=== PATIENT | female | born 1990 | race Caucasian/White ===

== ENCOUNTER 2021-10-29 13:01 | Emergency (ER) | payer MEDICAID ==
[~2021-10-29] VITALS: Ht 149.9 cm; Wt 51.0 kg
[2021-10-29 13:36] VITALS: BP 119/58
--- NOTE | 2021-10-29 13:40 | NUR ---
BIB SELF C/O DIZZINESS, 5/10 HEADACHE, NAUSEA X 1 WEEK. LMP 10/22/21. PMH: DEPRESSION
[2021-10-29 15:07] LABS: BASOPHILS % (AUTO) 0.5 % (0.0-2.0); EOSINOPHILS % (AUTO) 0.5 % (0.0-4.0); HEMATOCRIT 37.8 % (36-48); HEMOGLOBIN 12.8 g/dL (12.0-16.0); LYMPHOCYTES % (AUTO) 17.2 % (20.5-51.1); MEAN CORPUSCULAR HEMOGLOBIN 29 pg (27-31); MEAN CORPUSCULAR HGB CONC 34 g/dL (33-37); MEAN CORPUSCULAR VOLUME 85.5 fL (80-94); MONOCYTES # (AUTO) 0.4 K/uL (0.8-1.0); NEUTROPHILS # (AUTO) 4.4 K/uL (1.8-7.7); NEUTROPHILS % (AUTO) 74.8 % (42.2-75.2); PLATELET COUNT (AUTO) 353 K/uL (140-450); RED BLOOD CELL COUNT(AUTO) 4.42 MIL/uL (4.20-5.40); RED CELL DISTRIBUTION WIDTH 13.2 % (11.6-13.7); WHITE BLOOD COUNT (AUTO) 5.9 K/uL (4.8-10.8)
[2021-10-29 15:18] LABS: ANION GAP 13.3 (8-16); CARBON DIOXIDE 26.4 mmol/L (21-32); CREATININE 0.5 mg/dL (0.6-1.3); POTASSIUM 3.7 mmol/L (3.5-5.1)
--- NOTE | 2021-10-29 15:19 | NUR ---
30 Y/O F C/O DIZZINESS, HEADACHE, N/V/D FOR ONE WEEK ON AND OFF. CURRENTLY HAS HEADACHE PAIN 04/17. PMH: DEPRESSION, ANXIETY NKA
[2021-10-29] MEDS ORDERED: ONDANSETRON 4 MG ODT PO ONE (15:40)
[2021-10-29] MEDS ORDERED: KETOROLAC 30 MG/ML VIAL IM ONE (15:40)
[2021-10-29] MEDS ORDERED: ONDA-188 SL (15:46)
--- NOTE | 2021-10-29 16:03 | NUR ---
Patient discharged with v/s stable. Written and verbal after care instructions given and explained. Patient alert, oriented and verbalized understanding of instructions. Ambulatory with steady gait. All questions addressed prior to discharge. ID band removed. Patient advised to follow up with PMD. Rx of ONDANSETRON given. Opportunity to ask questions provided and answered.
--- NOTE | 2021-10-29 16:04 | NUR ---
The patient's care was reviewed and supervised by Mayra Soto RN.
== END 2021-10-29 16:03 | disposition home or self-care (01) ==
LOC: MED 13:01
DX: R11.2 Nausea with vomiting, unspecified (principal); R42 Dizziness and giddiness; R51.9 Headache, unspecified; I10 Essential (primary) hypertension; Z91.013 Allergy to seafood
CPT/HCPCS: 36415; 80048; 81025; 84484; 85025; 93005; 96372; 99284; J1885; Q0162

== ENCOUNTER 2022-03-01 12:19 | Emergency (ER) | payer MEDICAID ==
[~2022-03-01] VITALS: Ht 149.9 cm; Wt 52.2 kg
[~2022-03-01 12:19] MED LIST: ONDA-188 SL
[2022-03-01 12:31] VITALS: BP 114/68
[2022-03-01] MEDS ORDERED: DICYCLOMINE HCL LIQUID 20 MG, ALUMINUM HYD/MAG/SIMETHICONE 30 ML, LIDOCAINE VISCOUS 2% ... PO ONE ×3 (12:50)
[2022-03-01] MEDS ORDERED: ONDANSETRON 4 MG TAB PO ONE (12:50)
[2022-03-01] MEDS ORDERED: ALUMINUM HYD/MAG/SIMETHICONE 30 ML UDC ONE ×2 (12:59→13:00)
[2022-03-01] MEDS ORDERED: DICYCLOMINE HCL LIQUID 10 MG/5 ML UDC ONE (12:59)
[2022-03-01] MEDS ORDERED: ACETAMINOPHEN 325 MG TAB PO ONE (13:00)
--- NOTE | 2022-03-01 13:35 | NUR ---
31/F BIB SELF WITH C/O EPIGASTRIC PAIN RADIATING TO HER LLQ SINCE THIS MORNING. PATIENT STATES PAIN CAME ON SUDDENLY ALONG WITH NAUSEA AND VOMITING, DENIES DIARRHEA OR CONSTIPATIION, DENIES TAKING MEDS FOR HER SYMPTOMS. PATIENT DENIES FEVER, COUGH, OR RECENT SICK CONTACTS.
[2022-03-01] MEDS ORDERED: cefTRIAXone 1,000 MG in LIDOCAINE MPF 1% 2.1 ML IM SCH (14:20)
[2022-03-01] MEDS ORDERED: CEPH-588 PO (14:24)
[2022-03-01] MEDS ORDERED: FAMO-90 PO (14:24)
[2022-03-01] MEDS ORDERED: ONDA-188 PO (14:24)
[2022-03-01] MEDS ORDERED: cefTRIAXone 1,000 MG in LIDOCAINE MPF 1% 2.1 ML IM ONE (14:35)
[2022-03-01] MEDS ORDERED: cefTRIAXone 1,000 MG VIAL ONE (14:41)
[2022-03-01 15:04] VITALS: BP 110/57
--- NOTE | 2022-03-01 15:04 | NUR ---
Patient discharged with v/s stable. Written and verbal after care instructions ABOUT URINARY TRACT INFECTION AND ABDOMINAL PAIN given and explained. Patient alert, oriented and verbalized understanding of instructions. Ambulatory with steady gait. All questions addressed prior to discharge. ID band removed. Patient advised to follow up with PMD. Rx of KEFLEX, PEPCID given. Patient educated on indication of medication including possible reaction and side effects. Opportunity to ask questions provided and answered.
[2022-03-02] MEDS ORDERED: OMEP40EC24 PO (18:17)
== END 2022-03-01 15:04 | disposition home or self-care (01) ==
LOC: MED 12:19
DX: N39.0 Urinary tract infection, site not specified (principal); R11.10 Vomiting, unspecified; Z79.899 Other long term (current) drug therapy
CPT/HCPCS: 81002; 81025; 87086; 96372; 99284; J0696; Q0162

== ENCOUNTER 2022-03-02 16:08 | Emergency (ER) | payer MEDICAID ==
[~2022-03-02] VITALS: Ht 149.9 cm; Wt 52.6 kg
[~2022-03-02 16:08] MED LIST changes: +CEPH-588 PO; +FAMO-90 PO; +ONDA-188 PO
[2022-03-02 16:20] VITALS: BP 114/68
[2022-03-02 16:47] LABS: BASOPHILS % (AUTO) 0.6 % (0.0-2.0); EOSINOPHILS % (AUTO) 0.3 % (0.0-4.0); HEMOGLOBIN 12.2 g/dL (12.0-16.0); LYMPHOCYTES # (AUTO) 1.6 K/uL (2.5-16.5); LYMPHOCYTES % (AUTO) 19.9 % (20.5-51.1); MEAN CORPUSCULAR HEMOGLOBIN 29 pg (27-31); MEAN CORPUSCULAR HGB CONC 34 g/dL (33-37); MEAN CORPUSCULAR VOLUME 84.6 fL (80-94); MONOCYTES # (AUTO) 0.6 K/uL (0.8-1.0); NEUTROPHILS # (AUTO) 5.9 K/uL (1.8-7.7); NEUTROPHILS % (AUTO) 72.2 % (42.2-75.2); PLATELET COUNT (AUTO) 392 K/uL (140-450); RED BLOOD CELL COUNT(AUTO) 4.25 MIL/uL (4.20-5.40); RED CELL DISTRIBUTION WIDTH 13.5 % (11.6-13.7); WHITE BLOOD COUNT (AUTO) 8.2 K/uL (4.8-10.8)
--- NOTE | 2022-03-02 16:54 | NUR ---
31/F BIB SELF C/O ABDOMINAL PAIN SINCE YESTERDAY. WAS SEEN HERE YESTERDAY FOR SAME SYMTPOMS AND DX WITH UTI AND GIVEN ABX. STATES N/V RESOLVED BUT PAIN IS STILL PRESENT, DENIES TAKING PAIN MEDS. PAIN COMES AND GOES, 8/10 WHEN PAIN COMES, 3/10 WHEN PAIN GOES. DENIES N/V/D; SKIN IS PINK/WARM/DRY; AAOX4 WITH EVEN AND STEADY GAIT; LUNGS CLEAR BL; HR EVEN AND REGULAR; PT DENIES ANY FEVER, CP, SOB, OR COUGH AT THIS TIME; PATIENT STATES ABDOMINAL PAIN OF 3/10 AND HEADACHE PAIN OF 7/10 AT THIS TIME; VSS; PATIENT POSITIONED FOR COMFORT; HOB ELEVATED; BEDRAILS UP X2; BED DOWN. ER MD MADE AWARE OF PT STATUS. MEDHX: DENIES ALLERGIES: ELIJAH
[2022-03-02 17:05] LABS: ALBUMIN 3.9 g/dL (3.4-5.0); ANION GAP 12.4 (8-16); CARBON DIOXIDE 25.3 mmol/L (21-32); CREATININE 0.6 mg/dL (0.6-1.3); POTASSIUM 3.7 mmol/L (3.5-5.1); TOTAL BILIRUBIN 0.7 mg/dL (0.0-1.0)
[2022-03-02] MEDS ORDERED: OMEP40EC24 PO (18:17)
[2022-03-02 18:23] VITALS: BP 114/68
--- NOTE | 2022-03-02 18:23 | NUR ---
Patient discharged with v/s stable. Written and verbal after care instructions given and explained. Patient alert, oriented and verbalized understanding of instructions. Ambulatory with steady gait. All questions addressed prior to discharge. ID band removed. Patient advised to follow up with PMD. Rx of PRILOSEC given. Patient educated on indication of medication including possible reaction and side effects. Opportunity to ask questions provided and answered.
== END 2022-03-02 18:23 | disposition home or self-care (01) ==
LOC: MED 16:08
DX: N39.0 Urinary tract infection, site not specified (principal); Z98.890 Other specified postprocedural states; Z79.899 Other long term (current) drug therapy; Z79.2 Long term (current) use of antibiotics; Z91.013 Allergy to seafood
CPT/HCPCS: 36415; 80053; 83690; 85025; 99283

== ENCOUNTER 2022-03-23 12:37 | Emergency (ER) | payer MEDICAID ==
[~2022-03-23] VITALS: Ht 175.3 cm; Wt 54.0 kg
[~2022-03-23 12:37] MED LIST changes: +OMEP40EC24 PO
[2022-03-23 12:50] VITALS: BP 115/75
--- NOTE | 2022-03-23 12:53 | NUR ---
PT TO LOBBY.
--- NOTE | 2022-03-23 13:39 | NUR ---
PT AMBULATED TO ER BED 7 WITH A STEADY GAIT.
[2022-03-23] MEDS ORDERED: IBUP-2213 PO (13:47)
[2022-03-23] MEDS ORDERED: [UNRECOGNIZED DRUG - CODE] PO (13:47)
--- NOTE | 2022-03-23 14:14 | NUR ---
Patient discharged with v/s stable. Written and verbal after care instructions FOR UPPER RESPIRATORY INFECTION given and explained. Patient alert, oriented and verbalized understanding of instructions. Ambulatory with steady gait. All questions addressed prior to discharge. ID band removed. Patient advised to follow up with PMD. Rx of GUAIFENESIN AND IBUPROFEN given. Opportunity to ask questions provided and answered.
--- NOTE | 2022-03-23 14:45 | NUR ---
31 Y/O FEMALE C/O RIGHT EAR PAIN 5/10 RADIATING TO RIGHT SIDE OF THROAT X1DAYS. DENIES FEVER/CHILLS. DENIES N/V. DENIES PMH ALLERGIES: SHRIMP
== END 2022-03-23 14:14 | disposition home or self-care (01) ==
LOC: MED 12:37
DX: J06.9 Acute upper respiratory infection, unspecified (principal); Z20.822 Contact with and (suspected) exposure to COVID-19
CPT/HCPCS: 99283

== ENCOUNTER 2022-06-02 21:44 | Emergency (ER) | payer MEDICAID ==
[~2022-06-02] VITALS: Ht 149.9 cm; Wt 57.2 kg
[~2022-06-02 21:44] MED LIST changes: +IBUP-2213 PO; +[UNRECOGNIZED DRUG - CODE] PO
[2022-06-02 21:52] VITALS: BP 117/71
--- NOTE | 2022-06-03 00:02 | NUR ---
Dr. Cantu examining patient.
[2022-06-03] MEDS ORDERED: [UNRECOGNIZED DRUG - CODE] TP ×3 (00:07→01:45)
[2022-06-03] MEDS ORDERED: CEPH-588 PO ×3 (00:07→01:45)
[2022-06-03] MEDS ORDERED: PYR100 PO ×3 (00:07→01:45)
[2022-06-03 00:34] VITALS: BP 117/71
--- NOTE | 2022-06-03 00:35 | NUR ---
Patient discharged with v/s stable. Written and verbal after care instructions given and explained. Patient alert, oriented and verbalized understanding of instructions. Ambulatory with steady gait. All questions addressed prior to discharge. ID band removed. Patient advised to follow up with PMD. Rx of KEFLEX, ANTI ITCH CREAM, PYRIDIUM given. Patient educated on indication of medication including possible reaction and side effects. Opportunity to ask questions provided and answered.
[2022-06-03 04:38] LABS: APPEARANCE,URINE CLEAR (CLEAR); BILIRUBIN,URINE NEGATIVE (NEGATIVE); BLOOD, URINE TRACE-I (NEGATIVE); COLOR,URINE YELLOW (YELLOW); LEUKOCYTE ESTERASE ,URINE TRACE (NEGATIVE); NITRITE, URINE NEGATIVE (NEGATIVE); UGLUCOSE NEGATIVE (NEGATIVE)
[2022-06-03 07:55] LABS: RBC,URINE 0-5 /HPF (0-5); WBC,URINE 0-5 /HPF (0-5)
--- NOTE | 2022-06-06 18:24 | NUR ---
LATE ENTRY. RECEIVED POSITIVE URINE CULTURE. DISCREPANCY LOG SIGNED BY DR SERRANO. TREATMENT APPROPRIATE. FORM PLACED IN BINDER
== END 2022-06-03 00:35 | disposition home or self-care (01) ==
LOC: MED 21:44
DX: N30.90 Cystitis, unspecified without hematuria (principal)
CPT/HCPCS: 81001; 81002; 87086; 99283

== ENCOUNTER 2022-08-12 22:52 | Emergency (ER) | payer MEDICAID ==
[~2022-08-12] VITALS: Ht 149.9 cm; Wt 61.2 kg
[~2022-08-12 22:52] MED LIST changes: +PYR100 PO; +[UNRECOGNIZED DRUG - CODE] TP
[2022-08-12 23:14] VITALS: BP 118/76
--- NOTE | 2022-08-12 23:19 | NUR ---
TO LOBBY FOLLOWING TRIAGE
--- NOTE | 2022-08-12 23:42 | NUR ---
PT TAKEN TO BED 6
--- NOTE | 2022-08-13 | NUR ---
PT AMBULATED TO ED 6 FROM TRIAGE, PT C/O MIGRAINE X 3 DAYS, PT STARTED WEAR HER EYE GLASSES ON WEDNESDAY AND MIGRAINE STARTED WEDNESDAY, C/O DIZZINESS AT NIGHT.
--- NOTE | 2022-08-13 00:09 | NUR ---
Dr. Evans examining patient.
[2022-08-13] MEDS ORDERED: NACL 0.9% 1,000 ML IV ONE (00:10)
[2022-08-13] MEDS ORDERED: KETOROLAC 30 MG/ML VIAL IVP ONE (00:10)
[2022-08-13] MEDS ORDERED: ONDANSETRON 4 MG/2 ML VIAL IVP ONE (00:10)
[2022-08-13] MEDS ORDERED: IBUP-2213 PO (01:02)
[2022-08-13] MEDS ORDERED: ONDA-188 PO (01:02)
--- NOTE | 2022-08-13 01:12 | NUR ---
Patient discharged with v/s stable. Written and verbal after care instructions given and explained. Patient alert, oriented and verbalized understanding of instructions. Ambulatory with steady gait. All questions addressed prior to discharge. ID band removed. Patient advised to follow up with PMD. Rx of IBUPROFEN AND ZOFRAN given. Patient educated on indication of medication including possible reaction and side effects. Opportunity to ask questions provided and answered.
[2022-08-13 01:16] VITALS: BP 122/78
== END 2022-08-13 01:12 | disposition home or self-care (01) ==
LOC: MED 22:52
DX: G43.909 Migraine, unspecified, not intractable, without status migrainosus (principal); Z79.899 Other long term (current) drug therapy
CPT/HCPCS: 81025; 96361; 96374; 96375; 99284; J1885; J2405; J7030

== ENCOUNTER 2022-09-07 08:13 | Emergency (ER) | payer MEDICAID ==
[~2022-09-07] VITALS: Ht 147.3 cm; Wt 59.9 kg
[2022-09-07 08:45] VITALS: BP 120/72
--- NOTE | 2022-09-07 09:46 | NUR ---
PT AMBULATED TO ER BED 7
[2022-09-07] MEDS ORDERED: PRED20TA5 PO (10:37)
[2022-09-07] MEDS ORDERED: IBUP-2213 PO (10:37)
[2022-09-07] MEDS ORDERED: ONDANSETRON 4 MG ODT PO ONE (10:40)
--- NOTE | 2022-09-07 10:52 | NUR ---
Patient discharged with v/s stable. Written and verbal after care instructions FOR COUGH AND SORE THROAT given and explained. Patient alert, oriented and verbalized understanding of instructions. Ambulatory with steady gait. All questions addressed prior to discharge. ID band removed. Patient advised to follow up with PMD. Rx of IBUPROFEN AND PREDNISONE given. Opportunity to ask questions provided and answered.
--- NOTE | 2022-09-07 10:53 | NUR ---
The patient's care was reviewed and supervised by Mayra Soto RN.
== END 2022-09-07 10:52 | disposition home or self-care (01) ==
LOC: MED 08:13
DX: J02.9 Acute pharyngitis, unspecified (principal); Z91.013 Allergy to seafood; Z79.899 Other long term (current) drug therapy; Z98.890 Other specified postprocedural states
CPT/HCPCS: 99283

== ENCOUNTER 2022-11-13 18:36 | Emergency (ER) | payer MEDICAID ==
[~2022-11-13] VITALS: Ht 144.8 cm; Wt 62.6 kg
[~2022-11-13 18:36] MED LIST changes: +PRED20TA5 PO
--- NOTE | 2022-11-13 18:53 | NUR ---
CALLED FOR PT IN LOBBY AND OUTSIDE, NO ANSWER.
[2022-11-13 18:56] VITALS: BP 145/70
[2022-11-13] MEDS ORDERED: AMOX1TAB8 PO (19:46)
[2022-11-13] MEDS ORDERED: FLONAS NS (19:46)
[2022-11-13 20:32] VITALS: BP 145/70
--- NOTE | 2022-11-13 20:32 | NUR ---
Patient discharged with v/s stable. Written and verbal after care instructions given and explained. Patient alert, oriented and verbalized understanding of instructions. Ambulatory with steady gait. All questions addressed prior to discharge. ID band removed. Patient advised to follow up with PMD. Rx of FLONASE AND AMOX-CLAV given. Patient educated on indication of medication including possible reaction and side effects. Opportunity to ask questions provided and answered.
== END 2022-11-13 20:32 | disposition home or self-care (01) ==
LOC: MED 18:36
DX: J01.91 Acute recurrent sinusitis, unspecified (principal)
CPT/HCPCS: 99283

== ENCOUNTER 2022-11-18 19:54 | Emergency (ER) | payer MEDICAID ==
[~2022-11-18] VITALS: Ht 152.4 cm; Wt 62.6 kg
[~2022-11-18 19:54] MED LIST changes: +AMOX1TAB8 PO; +FLONAS NS
[2022-11-18 20:12] VITALS: BP 119/70
[2022-11-18] MEDS ORDERED: TRAM-748 PO (21:13)
[2022-11-18] MEDS ORDERED: BPM/118S31 PO (21:13)
--- NOTE | 2022-11-18 21:20 | NUR ---
Patient discharged with v/s stable. Written and verbal after care instructions given and explained to parent/guardian. Parent/Guardian verbalized understanding. Ambulatorysteady gait. All questions addressed prior to discharge. Advised to follow up with PMD.
== END 2022-11-18 21:20 | disposition home or self-care (01) ==
LOC: MED 19:54
DX: J06.9 Acute upper respiratory infection, unspecified (principal); B34.9 Viral infection, unspecified; Z79.899 Other long term (current) drug therapy; Z79.891 Long term (current) use of opiate analgesic; Z79.1 Long term (current) use of non-steroidal anti-inflammatories (NSAID); Z79.2 Long term (current) use of antibiotics; Z91.013 Allergy to seafood
CPT/HCPCS: 99283

== ENCOUNTER 2023-04-10 20:57 | Emergency (ER) | payer MEDICAID ==
[~2023-04-10] VITALS: Ht 149.9 cm; Wt 61.2 kg
[~2023-04-10 20:57] MED LIST changes: +BPM/118S31 PO; +TRAM-748 PO
[2023-04-10 21:43] VITALS: BP 117/66
--- NOTE | 2023-04-10 21:49 | NUR ---
TO LOBBY FOLLOWING TRIAGE
--- NOTE | 2023-04-10 22:31 | NUR ---
PT TO BED #1
[2023-04-10] MEDS ORDERED: KETOROLAC 30 MG/ML VIAL IVP ONE (23:40)
[2023-04-10] MEDS ORDERED: diphenhydrAMINE 50 MG/ML VIAL IVP ONE (23:40)
[2023-04-10] MEDS ORDERED: NACL 0.9% 1,000 ML IV ONE (23:40)
[2023-04-10] MEDS ORDERED: METOCLOPRAMIDE 10 MG/2 ML INJ VIAL IVP ONE (23:40)
--- NOTE | 2023-04-10 23:48 | NUR ---
Pt said she is not since she is almost ending her period.
[2023-04-11 01:16] LABS: APPEARANCE,URINE CLEAR (CLEAR); BILIRUBIN,URINE NEGATIVE (NEGATIVE); BLOOD, URINE TRACE-I (NEGATIVE); COLOR,URINE YELLOW (YELLOW); LEUKOCYTE ESTERASE ,URINE NEGATIVE (NEGATIVE); NITRITE, URINE NEGATIVE (NEGATIVE); UGLUCOSE NEGATIVE (NEGATIVE)
[2023-04-11 01:25] LABS: OTHER CRYSTALS,URINE SODIUM URATES 1+ /HPF (None Seen); RBC,URINE 0-5 /HPF (0-5)
[2023-04-11] MEDS ORDERED: METO-485 PO (01:25)
--- NOTE | 2023-04-11 01:30 | NUR ---
pt said she feel better. notified.
[2023-04-11 01:50] VITALS: BP 117/66
--- NOTE | 2023-04-11 01:52 | NUR ---
Patient discharged with v/s stable. Written and verbal after care instructions given and explained. Patient alert, oriented and verbalized understanding of instructions. Ambulatory with steady gait. All questions addressed prior to discharge. ID band removed. Patient advised to follow up with PMD. Rx of reglan given. Patient educated on indication of medication including possible reaction and side effects. Opportunity to ask questions provided and answered.
== END 2023-04-11 01:52 | disposition home or self-care (01) ==
LOC: MED 20:57
DX: R51.9 Headache, unspecified (principal); F32.9 Major depressive disorder, single episode, unspecified; G43.909 Migraine, unspecified, not intractable, without status migrainosus; Z79.899 Other long term (current) drug therapy; Z98.890 Other specified postprocedural states
CPT/HCPCS: 81001; 81025; 96361; 96374; 96375; 99284; J1200; J1885; J2765; J7030

== ENCOUNTER 2023-05-20 14:53 | Emergency (ER) | payer MEDICAID ==
[~2023-05-20] VITALS: Ht 149.9 cm; Wt 63.2 kg
[~2023-05-20 14:53] MED LIST changes: +METO-485 PO
[2023-05-20] MEDS ORDERED: IBUPROFEN 800 MG TAB PO ONE (15:00)
[2023-05-20] MEDS ORDERED: ONDANSETRON 4 MG ODT PO ONE (15:00)
[2023-05-20 15:03] VITALS: BP 124/73; PULSE 78; RESP 20; TEMP 97.9; O2SAT 97
--- NOTE | 2023-05-20 15:20 | NUR ---
pt ambulated to chair b from triage, being assessed by
[2023-05-20 15:22] LABS: BASOPHILS % (AUTO) 0.6 % (0.0-2.0); EOSINOPHILS % (AUTO) 0.4 % (0.0-4.0); HEMATOCRIT 37.4 % (36-48); HEMOGLOBIN 12.4 g/dL (12.0-16.0); LYMPHOCYTES # (AUTO) 1.4 K/uL (2.5-16.5); LYMPHOCYTES % (AUTO) 15.6 % (20.5-51.1); MEAN CORPUSCULAR HEMOGLOBIN 27 pg (27-31); MEAN CORPUSCULAR HGB CONC 33 g/dL (33-37); MEAN CORPUSCULAR VOLUME 81.3 fL (80-94); MONOCYTES # (AUTO) 0.6 K/uL (0.8-1.0); MONOCYTES % (AUTO) 6.5 % (1.7-9.3); NEUTROPHILS # (AUTO) 6.8 K/uL (1.8-7.7); NEUTROPHILS % (AUTO) 76.9 % (42.2-75.2); PLATELET COUNT (AUTO) 397 K/uL (140-450); RED CELL DISTRIBUTION WIDTH 14.1 % (11.6-13.7); WHITE BLOOD COUNT (AUTO) 8.9 K/uL (4.8-10.8)
[2023-05-20 15:40] LABS: ANION GAP 13.1 (8-16); CARBON DIOXIDE 26.7 mmol/L (21-32); CREATININE 0.5 mg/dL (0.6-1.3); POTASSIUM 3.8 mmol/L (3.5-5.1)
--- NOTE | 2023-05-20 15:47 | NUR ---
pt medicated per MD orders. SUSAN
[2023-05-20] MEDS ORDERED: IBUP-2218 PO (15:49)
[2023-05-20] MEDS ORDERED: ONDA-188 SL (15:49)
[2023-05-20 16:14] VITALS: BP 122/74; PULSE 86; RESP 20; TEMP 97.7; O2SAT 98
--- NOTE | 2023-05-20 16:14 | NUR ---
Patient discharged with v/s stable. Written and verbal after care instructions given and explained. Patient alert, oriented and verbalized understanding of instructions. Ambulatory with steady gait. All questions addressed prior to discharge. ID band removed. Patient advised to follow up with PMD. Rx of ibuprofen, zofran given. Patient educated on indication of medication including possible reaction and side effects. Opportunity to ask questions provided and answered.
== END 2023-05-20 16:14 | disposition home or self-care (01) ==
LOC: MED 14:53
DX: G43.909 Migraine, unspecified, not intractable, without status migrainosus (principal); R42 Dizziness and giddiness; R11.0 Nausea; Z20.822 Contact with and (suspected) exposure to COVID-19; Z79.899 Other long term (current) drug therapy; Z79.1 Long term (current) use of non-steroidal anti-inflammatories (NSAID); Z79.2 Long term (current) use of antibiotics
CPT/HCPCS: 36415; 80048; 81002; 81025; 85025; 87426; 99283; Q0162

== ENCOUNTER 2023-07-23 07:58 | Emergency (ER) | payer MEDICAID ==
[~2023-07-23] VITALS: Ht 147.3 cm; Wt 63.5 kg
[~2023-07-23 07:58] MED LIST changes: -BPM/118S31 PO; +BROM118S70 PO; +IBUP-2218 PO
[2023-07-23 08:10] VITALS: BP 114/70; PULSE 84; RESP 18; TEMP 98.1; O2SAT 98
[2023-07-23] MEDS ORDERED: FLONAS NS (08:35)
[2023-07-23] MEDS ORDERED: CETI10SG1 PO (08:35)
[2023-07-23] MEDS ORDERED: IBUP-2213 PO (08:35)
== END 2023-07-23 08:43 | disposition home or self-care (01) ==
LOC: MED 07:58
DX: J32.1 Chronic frontal sinusitis (principal); J32.0 Chronic maxillary sinusitis; Z79.899 Other long term (current) drug therapy
CPT/HCPCS: 99283

== ENCOUNTER 2023-12-21 21:40 | Emergency (ER) | payer MEDICAID ==
[~2023-12-21] VITALS: Ht 149.9 cm; Wt 63.5 kg
[~2023-12-21 21:40] MED LIST changes: +CETI10SG1 PO
[2023-12-21 22:04] VITALS: BP 118/73; PULSE 82; RESP 16; TEMP 98.1; O2SAT 98
[2023-12-21 22:32] LABS: BASOPHILS # (AUTO) 0.1 K/uL (0.00-0.22); BASOPHILS % (AUTO) 0.5 % (0.0-2.0); EOSINOPHILS # (AUTO) 0.1 K/uL (0-0.4); EOSINOPHILS % (AUTO) 0.9 % (0.0-4.0); HEMATOCRIT 36.2 % (36-48); HEMOGLOBIN 12.6 g/dL (12.0-16.0); LYMPHOCYTES # (AUTO) 1.9 K/uL (2.5-16.5); LYMPHOCYTES % (AUTO) 18.5 % (20.5-51.1); MEAN CORPUSCULAR HEMOGLOBIN 29 pg (27-31); MEAN CORPUSCULAR HGB CONC 35 g/dL (33-37); MEAN CORPUSCULAR VOLUME 82.9 fL (80-94); MONOCYTES # (AUTO) 0.8 K/uL (0.8-1.0); MONOCYTES % (AUTO) 8.3 % (1.7-9.3); NEUTROPHILS # (AUTO) 7.3 K/uL (1.8-7.7); NEUTROPHILS % (AUTO) 71.8 % (42.2-75.2); PLATELET COUNT (AUTO) 331 K/uL (140-450); RED BLOOD CELL COUNT(AUTO) 4.37 MIL/uL (4.20-5.40); RED CELL DISTRIBUTION WIDTH 14.2 % (11.6-13.7); WHITE BLOOD COUNT (AUTO) 10.1 K/uL (4.8-10.8)
[2023-12-21 22:55] LABS: ALBUMIN 3.3 g/dL (3.4-5.0); ANION GAP 14.4 (8-16); CALCIUM 8.8 mg/dL (8.5-10.1); CARBON DIOXIDE 26.4 mmol/L (21-32); CREATININE 0.6 mg/dL (0.6-1.3); POTASSIUM 3.8 mmol/L (3.5-5.1); TOTAL BILIRUBIN 0.4 mg/dL (0.0-1.0); TOTAL PROTEIN, SERUM 7.9 g/dL (6.4-8.2)
[2023-12-21 23:50] LABS: APPEARANCE,URINE CLEAR (CLEAR); BILIRUBIN,URINE NEGATIVE (NEGATIVE); BLOOD, URINE NEGATIVE (NEGATIVE); COLOR,URINE YELLOW (YELLOW); LEUKOCYTE ESTERASE ,URINE NEGATIVE (NEGATIVE); NITRITE, URINE NEGATIVE (NEGATIVE); PH,URINE 6.5 (5.0-9.0); PROTEIN,URINE NEGATIVE (NEGATIVE); UGLUCOSE NEGATIVE (NEGATIVE); UROBILINOGEN,URINE 0.2 EU/dL (0.2 - 1)
[2023-12-22] MEDS ORDERED: ACET-10509 PO (01:07)
[2023-12-22] MEDS ORDERED: DOXY1TCP PO (01:07)
[2023-12-22 01:28] VITALS: BP 133/59; PULSE 74; RESP 18; TEMP 98.3; O2SAT 99
== END 2023-12-22 01:28 | disposition home or self-care (01) ==
LOC: MED 21:40
DX: O20.0 Threatened abortion (principal); Z3A.01 Less than 8 weeks gestation of pregnancy; Z79.899 Other long term (current) drug therapy
CPT/HCPCS: 36415; 76801; 80053; 81003; 81025; 84702; 85025; 86900; 86901; 99284; Q0092

== ENCOUNTER 2024-01-27 07:26 | Emergency (ER) | payer MEDICAID ==
[~2024-01-27] VITALS: Ht 147.3 cm; Wt 61.2 kg
[~2024-01-27 07:26] MED LIST changes: +ACET-10509 PO; +DOXY1TCP PO
[2024-01-27 07:33] VITALS: BP 119/76; PULSE 96; RESP 19; TEMP 97.8; O2SAT 97
[2024-01-27] MEDS: PENICILLIN G BENZATHINE L-A 1.2 MU/2 ML SYR IM ONE (08:05)
[2024-01-27 08:25] VITALS: BP 119/76; PULSE 96; RESP 19; TEMP 97.8; O2SAT 97
== END 2024-01-27 08:25 | disposition home or self-care (01) ==
LOC: MED 07:26
DX: J02.0 Streptococcal pharyngitis (principal); Z98.890 Other specified postprocedural states; Z79.899 Other long term (current) drug therapy; Z91.013 Allergy to seafood
CPT/HCPCS: 81002; 81025; 96372; 99283; J0561

== ENCOUNTER 2024-06-07 13:55 | Observation (INO) | payer MEDICAID ==
[~2024-06-07] VITALS: Ht 149.9 cm; Wt 68.5 kg
[2024-06-07] MEDS ORDERED: ONDANSETRON 8 MG in NACL 0.9% 50 ML IVP PRN (14:35)
[2024-06-07] MEDS ORDERED: NACL 0.9% 500 ML IV SCH (14:35)
[2024-06-07 14:40] VITALS: BP 116/68; PULSE 92; RESP 18; TEMP 98.2
[2024-06-07] MEDS: NACL 0.9% 1,000 ML IV SCH (15:03)
[2024-06-07] MEDS: MORPHINE SULFATE 4 MG/ML SYR IVP PRN (15:05)
[2024-06-07] MEDS: ONDANSETRON 4 MG/2 ML VIAL IVP PRN (15:06)
== END 2024-06-07 17:30 | disposition home or self-care (01) ==
LOC: MLD 13:55
PROVIDERS: ADMIT Obstetrics & Gynecology; ATTEND Obstetrics & Gynecology
DX: O26.893 Other specified pregnancy related conditions, third trimester (principal); R10.9 Unspecified abdominal pain; Z3A.30 30 weeks gestation of pregnancy
CPT/HCPCS: 81000; 96365; 96375; G0378; J0696; J2270; J2405; J7060

== ENCOUNTER 2024-08-20 12:40 | Emergency (ER) | payer MEDICAID ==
[~2024-08-20] VITALS: Ht 149.9 cm; Wt 65.3 kg
[~2024-08-20 12:40] MED LIST changes: -ACET-10509 PO; +ACET500T99 PO
[2024-08-20 12:46] VITALS: BP 136/86; PULSE 70; RESP 16; TEMP 97.3; O2SAT 96
[2024-08-20 14:04] LABS: BILIRUBIN,URINE NEGATIVE (NEGATIVE); BLOOD, URINE 1+ (NEGATIVE); COLOR,URINE YELLOW (YELLOW); LEUKOCYTE ESTERASE ,URINE 3+ (NEGATIVE); NITRITE, URINE NEGATIVE (NEGATIVE); PROTEIN,URINE 1+ (NEGATIVE); UGLUCOSE NEGATIVE (NEGATIVE); UROBILINOGEN,URINE 0.2 EU/dL (0.2 - 1)
[2024-08-20 14:05] LABS: BASOPHILS % (AUTO) 0.5 % (0.0-2.0); EOSINOPHILS # (AUTO) 0.2 K/uL (0-0.4); EOSINOPHILS % (AUTO) 2.6 % (0.0-4.0); HEMATOCRIT 36.4 % (36-48); HEMOGLOBIN 11.9 g/dL (12.0-16.0); LYMPHOCYTES # (AUTO) 1.3 K/uL (2.5-16.5); LYMPHOCYTES % (AUTO) 15.2 % (20.5-51.1); MEAN CORPUSCULAR HEMOGLOBIN 25 pg (27-31); MEAN CORPUSCULAR HGB CONC 33 g/dL (33-37); MEAN CORPUSCULAR VOLUME 76.6 fL (80-94); MONOCYTES # (AUTO) 0.7 K/uL (0.8-1.0); MONOCYTES % (AUTO) 7.6 % (1.7-9.3); NEUTROPHILS # (AUTO) 6.6 K/uL (1.8-7.7); NEUTROPHILS % (AUTO) 74.1 % (42.2-75.2); PLATELET COUNT (AUTO) 355 K/uL (140-450); RED BLOOD CELL COUNT(AUTO) 4.75 MIL/uL (4.20-5.40); WHITE BLOOD COUNT (AUTO) 8.9 K/uL (4.8-10.8)
[2024-08-20 14:05] LABS: APPEARANCE,URINE SLIGHTLY HAZY (CLEAR)
[2024-08-20 14:10] LABS: BACTERIA,URINE 2+ /HPF (None Seen); MUCUS,URINE None Seen /LPF (None Seen); RBC,URINE 0-5 /HPF (0-5); SQUAMOUS EPITHELIAL CELL,UR 4-10 (MOD) /LPF (0-3 (FEW))
[2024-08-20 14:14] LABS: ANION GAP 13.9 (8-16); CALCIUM 9.4 mg/dL (8.5-10.1); CARBON DIOXIDE 27.2 mmol/L (21-32); CREATININE 0.7 mg/dL (0.6-1.3); POTASSIUM 4.1 mmol/L (3.5-5.1)
[2024-08-20 14:19] LABS: ALBUMIN 3.6 g/dL (3.4-5.0); BILIRUBIN,DIRECT 0.1 mg/dL (0.0-0.3); TOTAL BILIRUBIN 0.6 mg/dL (0.0-1.0); TOTAL PROTEIN, SERUM 8.1 g/dL (6.4-8.2)
[2024-08-20] MEDS ORDERED: ONDANSETRON 4 MG/2 ML VIAL ONE (14:28)
[2024-08-20] MEDS ORDERED: KETOROLAC 30 MG/ML VIAL ONE (14:28)
[2024-08-20] MEDS: ONDANSETRON 4 MG/2 ML VIAL IVP ONE (14:31)
[2024-08-20] MEDS: KETOROLAC 30 MG/ML VIAL IVP ONE (14:34)
[2024-08-20] MEDS ORDERED: ACET500T99 PO (17:13)
[2024-08-20] MEDS ORDERED: IBUP-1842 PO (17:13)
[2024-08-20] MEDS ORDERED: CEPH-588 PO (17:29)
[2024-08-20 17:30] VITALS: BP 132/83; PULSE 84; RESP 16; TEMP 36.28068; O2SAT 96
== END 2024-08-20 17:30 | disposition home or self-care (01) ==
LOC: MED 12:40
DX: O86.22 Infection of bladder following delivery (principal); N30.00 Acute cystitis without hematuria; O90.89 Other complications of the puerperium, not elsewhere classified; D25.9 Leiomyoma of uterus, unspecified; O99.893 Other specified diseases and conditions complicating puerperium; N83.201 Unspecified ovarian cyst, right side; O86.09 Infection of obstetric surgical wound, other surgical site; Z79.899 Other long term (current) drug therapy; Z91.013 Allergy to seafood
CPT/HCPCS: 36415; 74177; 80048; 80076; 81001; 81025; 83690; 85025; 87086; 96374; 96375; 99285; J1885; J2405; Q9967